=== PATIENT | female | born 1985 | race Caucasian/White ===

== ENCOUNTER 2020-09-02 05:06 | Inpatient (IN) | payer OTHER, SELFPAY ==
[2020-09-02] VITALS (57 sets, daily range): BP systolic 107–162; BP diastolic 57–91; PULSE 49–93; RESP 16; TEMP 36.4–37.1; O2SAT 96–100
[2020-09-02] MEDS: LACTATED RINGERS 1,000 ML 125 ML IV CONT ×2 (05:45→06:20)
[2020-09-02 05:56] LABS: Basophils Percent Auto 0.3 % (0.2-1.2); Eosinophils Absolute Auto 0.2 K/mm3 (0-0.3); Eosinophils Percent Auto 2.3 % (0-4.4); Hematocrit 37.1 % (37.0-47.0); Hemoglobin 12.5 g/dL (12.0-15.0); Immature Granulocyte Absolute 0.17 K/mm3 (0.00-0.031); Immature Granulocyte Percent A 1.7 % (0-0.5); Lymphocytes Absolute Auto 2.05 K/mm3 (0.9-3.2); Mean Corpuscular HGB Conc 33.7 g/dl (32-36); Mean Corpuscular Hemoglobin 30.7 pg (26-34); Mean Corpuscular Volume 91.2 fl (80-100); Mean Platelet Volume 11.8 fl (7.4-10.4); Monocytes Absolute Auto 0.6 K/mm3 (0.1-0.6); Monocytes Percent Auto 6.1 % (2.6-8.5); Neutrophils Absolute Auto 7.1 K/mm3 (1.3-6.7); Neutrophils Percent Auto 69.6 % (45.5-73.1); Platelet Count Result 150 k/mm3 (150-375); Red Blood Count 4.07 M/mm3 (4.2-5.4); Red Cell Distribution Width 12.6 % (11.5-14.5); White Blood Count 10.2 K/mm3 (4.5-10.0)
--- NOTE | 2020-09-02 05:57 | LDADM ---
This patient, Veronica Abreu, was admitted to Labor/Delivery/Recovery 104 on 09/02/20 at 05:06. Plans for labor, pain management and were discussed with patient. Patient/family oriented to hospital policies and general routines including ID bracelet, bed and alarms, visiting hours, pain management, procedures, bathroom and other care routines, personal items, smoking policy, room service/diet and guest tray routines, security routines, and visiting hours. Patient/Family are encouraged to report perceived risks to care and to ask questions if they do not understand what they are told or what they should do. See OBIX for further documentation.
--- NOTE | 2020-09-02 06:19 | WPDANESEPP ---
Anes - Eval Pre Procedure Procedure: Labor epidural Date/Time: 09/02/20 06:19 Surgeon: parrish ramires Preop Diagnosis: abd pain with contractions Pre Op Diagnosis: Leaking Patient Data Age: 34 Gender: F Height: 5 ft 10 in Weight: Last Vital Signs Pulse 56 L 09/02/20 06:17 BP 129/77 09/02/20 06:17 Pulse Ox 100 09/02/20 06:19 Allergies Allergy/AdvReac Type Severity Reaction Status Date / Time No Known Allergies Allergy Verified 10/30/19 15:57 Home Medications Medication Instructions Recorded Confirmed Type PNV cmb#95-ferrous fumarate-FA 1 tablet PO DAILY 08/16/20 08/16/20 History [] Laboratory Tests 09/02/20 09/02/20 05:45 05:45 WBC 10.2 K/mm3 H K/mm3 (4.5-10.0) RBC 4.07 M/mm3 L M/mm3 (4.2-5.4) Hgb 12.5 g/dL g/dL (12.0-15.0) Hct 37.1 % % (37.0-47.0) MCV 91.2 fl fl (80-100) MCH 30.7 pg pg (26-34) MCHC 33.7 g/dl g/dl (32-36) RDW 12.6 % % (11.5-14.5) Plt Count 150 k/mm3 k/mm3 (150-375) MPV 11.8 fl H fl (7.4-10.4) Immature Gran % (Auto) 1.7 % H % (0-0.5) Neut % (Auto) 69.6 % % (45.5-73.1) Lymph % (Auto) 20.0 % % (18.3-44.2) [place] % (Auto) 6.1 % % (2.6-8.5) Eos % (Auto) 2.3 % % (0-4.4) Baso % (Auto) 0.3 % % (0.2-1.2) Lymph # (Auto) 2.05 K/mm3 K/mm3 (0.9-3.2) [place] # (Auto) 0.6 K/mm3 K/mm3 (0.1-0.6) Eos # (Auto) 0.2 K/mm3 K/mm3 (0-0.3) Baso # (Auto) 0.0 K/mm3 K/mm3 (0.0-0.1) Abs Immat Gran (auto) 0.17 K/mm3 H K/mm3 (0.00-0.031) Absolute Neuts (auto) 7.1 K/mm3 H K/mm3 (1.3-6.7) Absolute Nucleated RBC 0.0 K/mm3 K/mm3 (0.0-0.012) Nucleated RBC % 0.0 % % (0.0-0.2) RPR Pending Patient hx anesthesia problems: none Family hx anesthesia problems: none PMFSH Family History Family History Mother Other No pertinent family history Social History Social History Smoking status: Never smoker Substance use: never Gender identity (if verbalized by the patient): Female Spiritual care concerns: No Exam Day of Procedure 09/02/20 06:19 Patient weight: overweight Airway: Mallampati scale class II Neurological: alert and oriented
--- NOTE | 2020-09-02 06:57 | PM.IMHP ---
H&P: HPI History of Present Illness Date/Time: 09/02/20 06:57 34-year-old whose last menstrual period was 12/06/2019, EDC is 09/11/2020, confirmed by 10 week ultrasound presents at 38 and half weeks gestation with spontaneous rupture membranes prior to admission. has apparently been uncomplicated and she is negative for group B strep. Chief Complaint: srom Review of Systems Review of Systems: All systems reviewed & are unremarkable except as noted in HPI and below PMFSH Family History Family History Mother Other No pertinent family history Social History Social History Smoking status: Never smoker Substance use: never Gender identity (if verbalized by the patient): Female Spiritual care concerns: No Meds Home Medications and Allergies Home Medications Medication Instructions Recorded Confirmed Type PNV cmb#95-ferrous fumarate-FA 1 tablet PO DAILY 08/16/20 08/16/20 History [] Allergies Allergy/AdvReac Type Severity Reaction Status Date / Time No Known Allergies Allergy Verified 10/30/19 15:57 Vital Signs Vital Signs - 24 hr 09/02/20 06:00 09/02/20 06:04 09/02/20 06:05 Temperature 98.2 F Pulse Rate 57 L Blood Pressure 127/84 Pulse Oximetry 97 09/02/20 06:08 09/02/20 06:09 09/02/20 06:10 Temperature Pulse Rate 55 L 62 Blood Pressure 125/63 128/69 Pulse Oximetry 99 09/02/20 06:14 09/02/20 06:15 09/02/20 06:17 Temperature Pulse Rate 62 55 L 56 L Blood Pressure 131/77 122/74 129/77 Pulse Oximetry 99 09/02/20 06:19 09/02/20 06:20 09/02/20 06:22 Temperature Pulse Rate 67 60 Blood Pressure 133/82 128/82 Pulse Oximetry 100 09/02/20 06:24 09/02/20 06:25 09/02/20 06:28 Temperature Pulse Rate 55 L 65 Blood Pressure 119/78 136/73 Pulse Oximetry 100 09/02/20 06:29 09/02/20 06:30 09/02/20 06:32 Temperature Pulse Rate 61 67 Blood Pressure 129/80 130/91 H Pulse Oximetry 100 09/02/20 06:34 09/02/20 06:35 09/02/20 06:37 Temperature Pulse Rate 93 57 L Blood Pressure 118/72 122/75 Pulse Oximetry 100 09/02/20 06:39 09/02/20 06:40 09/02/20 06:44 Temperature Pulse Rate 49 L Blood Pressure 129/69 Pulse Oximetry 100 100 09/02/20 06:45 09/02/20 06:49 09/02/20 06:54 Temperature Pulse Rate 62 Blood Pressure 107/57 L Pulse Oximetry 100 100 Exam Const: General: no acute distress Eyes: General: appearance normal, both eyes and all related structures Neck: Neck: supple and no JVD Thyroid: thyroid normal Resp: Effort & Inspection: normal respiratory effort Auscultation: clear to auscultation bilaterally Cardio: Rate: regular rate Rhythm: regular rhythm GI: Inspection: non-distended GI Palp: Yes Soft to palpation, No Tenderness to palpation present (GI) and No Guarding due to palpation present (GI) Auscultation: normal bowel sounds : External Female Exam: normal external appearance Speculum Exam - Cervix: Cervical os closed ( Cervix 4cm by RN exam. Clear fluid seen. FHTs were reassuring) Skin: General skin exam: no rashes or lesions noted Extrem: General: normal to inspection and no edema Psych: Mental Status: mental status grossly normal Affect: normal affect H&P: Results Labs Labs: Short CBC 09/02/20 Range/Units 05:45 WBC 10.2 H (4.5-10.0) K/mm3 Hgb 12.5 (12.0-15.0) g/dL Hct 37.1 (37.0-47.0) % Plt Count 150 (150-375) k/mm3 Assessment and Plan Additional Plan impression: Term with spontaneous rupture membranes Plan: Spontaneous vaginal was expected. She has an epidural candidate
[2020-09-02 07:18] LABS: Rapid Plasma Reagin Non-Reactive (NonReactive)
[2020-09-02] MEDS: OXYTOCIN 30 UNITS/NS 500 ML 30 UNITS/500 ML BAG 999 UNITS IV CONT (08:01)
--- NOTE | 2020-09-02 08:05 | PM.OBPRVD ---
OB - Delivery Note Procedure Delivery date: 09/02/20 Intrapartal events: None Induction method: none Delivery monitor: external FHT Route of delivery: Episiotomy description: None Laceration Description: None Specimen: No Quantitative Blood Loss (ml): 58 Anesthesia type: Epidural Disposition: floor Baby Date of : 09/02/20 Time of : 07:58 Weeks of gestation at delivery: 38 gender: Male presentation: vertex position: Right Occiput Anterior Placenta delivery description: Spontaneous cord vessel description: 3 Vessels score one minute: 9 score five minutes: 9
[2020-09-02] MEDS: OXYTOCIN 30 UNITS/NS 500 ML 30 UNITS/500 ML BAG 125 UNITS IV CONT (08:37)
[2020-09-02] MEDS: BENZOCAINE 20% AER SPR (*SP) 56 GM CAN 1 SPRAY TOPICAL (10:09)
[2020-09-02] MEDS: WITCH HAZEL 40 PADS 1 PAD TOPICAL (10:09)
[2020-09-02] MEDS: DIBUCAINE 1% OINTMENT 30 GM TUBE 1 APPLIC TOPICAL (10:09)
[2020-09-02] MEDS: IBUPROFEN 600 MG TABLET PO ×3 (10:37→23:55)
--- NOTE | 2020-09-02 11:30 | PC.NURSE ---
Mother called out for assist with feeding. Consulted with patient, mother reports fed eagerly for first feeding. Mother has nipple discomfort with latch during first part of the feeding that quickly resolves. Observed mother putting infant to breast in cradle with shallow latch. Reviewed infant feeding cues, frequencies, duration of feedings, feeding elimination flow sheet, and signs of adequate intake. Demonstrated stimulation techniques to wake infant for feeding. Assisted with to breast. Reviewed positioning/alignment in cross cradle, holding breast in U hold and guided asymmetrical latch on. Reviewed need assist to latch and to maintain latch. was able to latch within a few attempts. nursed eagerly, with steady draws and frequent swallowing noted. Reviewed signs of a correct latch, effective nursing and suck swallow ratio. Infant was able to maintain latch. Mother reported tenderness at times, infant had slipped to shallow latch. Demonstrated how to adjust latch more deeply while feeding. Mother quickly reports she can feel is latched more deeply and has minimal tenderness. Suggested to stimulate infant while feeding to keep awake and nursing effectively for increased stimulation and increased intake. Instructed mother to call out for RN assistance if she is unable to latch infant for feeding or she has discomfort with nursing.
[2020-09-03 05:00] VITALS: BP 113/74; PULSE 63; RESP 16; TEMP 36.5; O2SAT 100
[2020-09-03] MEDS: ACETAMINOPHEN 325 MG TABLET 650 MG PO (05:07)
[2020-09-03 05:50] LABS: Hematocrit 34.2 % (37.0-47.0); Hemoglobin 11.3 g/dL (12.0-15.0)
--- NOTE | 2020-09-03 07:22 | WPDANLDPN2 ---
Anes-Prog Note L&D Date/Time: 09/03/20 07:22 Comfortable throughout: labor and delivery Neuraxial method: epidural Epidural/Spinal procedure site: clean & non-tender Neuro status: Neuro function grossly intact. Cardiovascular status: normal Respiratory status: normal Airway patency: baseline Mental status: baseline Post-Op hydration status: normal Vital Signs: Last Vital Signs Temp 36.5 C 09/03/20 05:00 Pulse 63 09/03/20 05:00 Resp 16 09/03/20 05:00 BP 113/74 09/03/20 05:00 Pulse Ox 100 09/03/20 05:00 Pain score (VAS): 06/09 Post-procedural complaints: none Patient feedback: Patient satisfied with anesthetic care.
[2020-09-03] MEDS: WITCH HAZEL 40 PADS 1 PAD TOPICAL (07:33)
[2020-09-03] MEDS: BENZOCAINE 20% AER SPR (*SP) 56 GM CAN 1 SPRAY TOPICAL (07:33)
[2020-09-03] MEDS: DOCUSATE SODIUM 100 MG CAPSULE PO (07:34)
[2020-09-03] MEDS: IBUPROFEN 600 MG TABLET PO ×2 (07:34→13:25)
[2020-09-03] MEDS: MULTIVIT/MIN/PREN/FOL AC/IRON TABLET 1 TAB PO (07:34)
[2020-09-03 07:57] VITALS: BP 116/78; PULSE 76; RESP 18; TEMP 36.4
--- NOTE | 2020-09-03 10:00 | PC.NURSE ---
Patient was given the opportunity to view the discharge video Mother & Baby Care, The First Two Weeks and to ask questions. Patient declined viewing the video and has been given the mother/baby guide for home reference.
--- NOTE | 2020-09-03 10:10 | PC.NURSE ---
Mother called out for assist with feeding. Mother reports nipple discomfort with latch that lessens during the feeding. Reviewed nipple care of lanolin, warm compresses several times per day and gel pads as needed. Reviewed infant feeding cues, frequencies, duration of feedings, feeding elimination flow sheet, and signs of adequate intake. Demonstrated stimulation techniques to wake for feeding. Assisted with infant to breast. Reviewed positioning/alignment in cross cradle, holding breast in U hold and guided asymmetrical latch on. Mother quickly switches to cradle, advised to continue to hold breast during entire feeding to assist infant with maintaining deep latch. was able to latch within a few attempts. Infant nursed eagerly, with steady draws and frequent swallowing noted. Reviewed signs of a correct latch, effective nursing and suck swallow ratio. Infant was able to maintain latch. Mother reported tenderness at times, had slipped to shallow latch. Demonstrated how to adjust latch more deeply while feeding. Mother quickly reports she can feel is latched more deeply and has minimal tenderness. Suggested to stimulate while feeding to keep awake and nursing effectively for increased stimulation and increased intake. Instructed mother to call out for RN assistance if she is unable to latch for feeding or she has discomfort with nursing. Mother plans on discharge today. Mother able to independently latch with appropriate positioning/alignment. She reports slight nipple discomfort ( working with deeper latch), is feeding as required and waking to feed if needed. effective feeding as required since , and is currently meeting outcomes for weight, output, jaundice and feeding frequencies. Mother states she feels confident to continue effective at home. Reviewed transition to breast milk, signs of adequate intake, and engorgement/relief. Instructed to call ICP if intake/output less than required. Reviewed regular medications mother is taking. Information provided per Michelle. Reviewed community resources on the [employer] website and in the Mom/Baby guide. Information on outpatient services provided. Mother has no further questions at this time.
--- NOTE | 2020-09-03 12:38 | PM.OBPNVD ---
OB - PN: Subj Subjective Date/time seen: 09/03/20 12:38 Narrative: Pain OK. Would like circumcision for son. Also would like to go home today. OB - PN: Obj Data Labs CBC & Chem 7: 09/03/20 04:58 Labs: Laboratory Results - last 24 hr 09/03/20 04:58 Hgb 11.3 L Hct 34.2 L OB - PN A/P Plan Comments: A: PPD#1, doing well. P: Routine care. Reviewed circ. Plan to send home today to f/u 6 weeks. Exam Psych: Other: AVSS ABD soft, nontender, fundus firm EXT nontender
--- NOTE | 2020-09-03 12:40 | PM.OBDSVD ---
DS: Admitting Diagnosis Admitting Diagnosis Admitting Diagnosis: SROM IUP at 38 5/7 weeks DS: Discharge Diagnosis Discharge Diagnosis (1) (normal spontaneous vaginal delivery): Code(s): O80 - Encounter for full-term uncomplicated delivery Status: Acute OB - DS: Summary OB Procedures : None OB Procedures Intrapartum: Spontaneous Vag Delivery OB Procedures: : None Time Spent with Patient Time attestation: Total time spent providing and/or coordinating discharge services: DS: Data Data Completed and Pending Labs on day of discharge: Labs from last 24 hours 09/03/20 04:58 Hgb 11.3 L Hct 34.2 L Discharge Plan Discharge Attending physician on discharge: Saleem Murrell Discharging Clinician: Jeferson Schneider Patient Disposition: Home, Self-Care Activity: pelvic rest Diet: regular Discharge Instructions: Call or return if temperature above 100.4? F, increased abdominal pain, increased vaginal bleeding or any new problems. Stand Alone Forms: General Discharge Information Follow-up/Referrals: Jeferson Schneider MD [Physician] - 6 Weeks Discharge Medications: New ibuprofen 600 mg tablet 600 mg PO Q6H PRN (Reason: cramps) Qty: 30 RF: 0 No Action PNV cmb#95-ferrous fumarate-FA [] 28 mg iron- 800 mcg Tablet 1 tablet PO DAILY RF: 0 Date of admission: 09/02/20 05:06 Primary Care Provider: Thaddeus Sotomayor Admitting Provider: Jeferson Schneider Attending physician on admission: Jeferson Schneider Condition: Stable
[2020-09-03] MEDS: TETANUS,DIPHTHERIA,AC PERTUSSIS ADULT (0.5 ML) BOOSTRIX IM (13:26)
--- NOTE | 2020-09-03 14:00 | PC.NURSE ---
Self care and infant care discharge instructions given including follow up visit date and time. Pt. verbalized understanding. No questions or concerns voiced. Very pleasant and cooperative.
[2020-09-04 10:50] VITALS: BP 113/76; PULSE 61; RESP 20; TEMP 36.6; O2SAT 99
== END 2020-09-03 15:00 | disposition home or self-care (01) | DRG 807 ==
LOC: ANHLDR 05:45 → ANHOB2 10:21
PROVIDERS: Obstetrics & Gynecology; Admitting Provider Obstetrics & Gynecology; PCP Family Medicine; Visit Provider Obstetrics & Gynecology
DX: O80 Encounter for full-term uncomplicated delivery (principal); Z37.0 Single live birth; Z3A.38 38 weeks gestation of pregnancy
CPT/HCPCS: 36415; 84112; 85014; 85018; 85025; 86592; 86850; 86900; 86901; 90715; A9270; J2590; J2795; J7120

== ENCOUNTER 2024-03-15 06:34 | Inpatient (IN) | payer BC, SELFPAY ==
[2024-03-15] VITALS (95 sets, daily range): BP systolic 75–219; BP diastolic 30–184; PULSE 45–171; RESP 18; TEMP 36.1–37.1; O2SAT 76–100
--- NOTE | 2024-03-15 06:34 | LDADM ---
This patient, Veronica Abreu, was admitted to Labor/Delivery/Recovery 107 on 03/15/24 at 06:34. Plans for labor, pain management and were discussed with patient. Patient/family oriented to hospital policies and general routines including ID bracelet, bed and alarms, visiting hours, pain management, procedures, bathroom and other care routines, personal items, smoking policy, room service/diet and guest tray routines, security routines, and visiting hours. Patient/Family are encouraged to report perceived risks to care and to ask questions if they do not understand what they are told or what they should do. See OBIX for further documentation.
[2024-03-15] MEDS: LACTATED RINGERS 1,000 ML 125 ML IV CONT ×2 (07:14→09:28)
[2024-03-15 07:15] LABS: Basophils Percent Auto 0.4 % (0.2-1.2); Eosinophils Absolute Auto 0.1 K/mm3 (0-0.3); Eosinophils Percent Auto 1.4 % (0-4.4); Hematocrit 38.9 % (37.0-47.0); Hemoglobin 13.6 g/dL (12.0-15.0); Lymphocytes Percent Auto 16.9 % (18.3-44.2); Mean Corpuscular Hemoglobin 32.2 pg (26-34); Mean Corpuscular Volume 92.2 fl (80-100); Mean Platelet Volume 11.2 fl (7.4-10.4); Monocytes Absolute Auto 0.6 K/mm3 (0.1-0.6); Monocytes Percent Auto 5.9 % (2.6-8.5); Neutrophils Absolute Auto 7.4 K/mm3 (1.3-6.7); Neutrophils Percent Auto 73.4 % (45.5-73.1); Platelet Count Result 164 k/mm3 (150-375); Red Blood Count 4.22 M/mm3 (4.2-5.4); Red Cell Distribution Width 12.7 % (11.5-14.5); White Blood Count 10.1 K/mm3 (4.5-10.0)
[2024-03-15] MEDS: OXYTOCIN 30 UNITS/NS 500 ML 30 UNITS/500 ML BAG IV CONT (07:15)
[2024-03-15 08:06] LABS: HIV 1/2 Ab P24 Ag Result Negative (Negative)
[2024-03-15 08:30] LABS: Rapid Plasma Reagin Non-Reactive (NonReactive)
[2024-03-15 08:45] LABS: Hepatitis B Surface Antigen Negative (Negative)
--- NOTE | 2024-03-15 08:49 | WPDOBADMIT ---
Obstetrics - Admit Note Admission Note: record reviewed. Additions to the history and/or subsequent changes in the physical findings follow. 38 y/o at 39 weeks here for induction of labor. GBS neg. AVSS NST reactive TOCO: contractions irregularly ABD soft, nontender, gravid EXT nontender Cervix /-2. Vertex. AROM with clear fluid. A: IUP at term with favorable cervix. P: Oxytocin. Anticipate .
[2024-03-15 09:02] LABS: Rubella IgG Antibody 47.2 IU/ML
--- NOTE | 2024-03-15 12:03 | PM.OBPNLAB ---
Pain Control Date/time seen: 03/15/24 12:03 Comments: Comfortable with epidural. Pelvic Exam Dilation (cm): 5 Effacement (%): 80 station: -2 Contractions Contraction frequency: 4 Status status: Category l Assessment and Plan Plan: continuous present management
--- NOTE | 2024-03-15 15:40 | PM.OBPRVD ---
OB - Vaginal Delivery Note Procedure Delivery date: 03/15/24 Events: Elective Induction of Labor Induction method: Per Pitocin Protocol Delivery augmentation: Rupture of Membranes Delivery monitor: External FHT and External Uterine Route of delivery: Episiotomy description: None Laceration Description: Perineal - 1st Degree Delivery repair: vicryl (3-0) Specimen: Yes (cord blood) Quantitative Blood Loss (ml): 200 Anesthesia type: Epidural Disposition: PACU Complications: None Narrative: 38 y/o at 39 weeks gestation who presented to the hospital for induction of labor. Oxytocin was administered intravenously. Amniotomy was performed with return of clear fluid. She received an epidural for pain control. Her labor progressed and her cervix dilated completely. She pushed with good effort and delivered the infant's head to the perineum, followed by the body. The nose and mouth were bulb suctioned. After a delay, the cord was clamped and cut. The infant was handed off the field. Cord blood was collected. The placenta delivered spontaneously and was grossly normal in appearance. The usual 3 vessel cord was noted. A first degree midline perineal laceration was sustained. This was reapproximated using 3 0 Vicryl in a single, figure of eight suture. Excellent hemostasis resulted as did excellent reapproximation of the normal anatomy. Needle and instrument counts were correct. The patient was taken to recovery room in stable condition. The infant went to the nursery in stable condition. I was present and scrubbed for the entire delivery. Baby Date of : 03/15/24 Time of : 15:23 Gestational Age by Date: 39 gender: Female Weight (pounds): 9 Weight (ounces): 6 presentation: vertex position: Left Occiput Anterior Placenta delivery description: Spontaneous and Normal Configuration Cord Vessel Description: 3 Vessels and Delayed Cord Clamping score one minute: 9 score five minutes: 9
--- NOTE | 2024-03-15 15:44 | P.DS_ITS ---
DS: Admitting Diagnosis Discharge Date 03/16/24 Admitting Diagnosis IUP at 39 weeks DS: Discharge Diagnosis Discharge Diagnosis (1) (normal spontaneous vaginal delivery): Code(s): O80 - Encounter for full-term uncomplicated delivery Status: Acute OB - DS: Summary OB Procedures : None OB Procedures Intrapartum: Spontaneous Vag Delivery OB Procedures: : None Peripartum Data Laceration Description: Perineal - 1st Degree Episiotomy description: None Time Spent with Patient Time attestation: Total time spent providing and/or coordinating discharge services: DS: Data Data Completed and Pending Labs on day of discharge: Labs from last 24 hours 03/15/24 06:48 WBC 10.1 H RBC 4.22 Hgb 13.6 Hct 38.9 MCV 92.2 MCH 32.2 MCHC 35.0 RDW 12.7 Plt Count 164 MPV 11.2 H Immature Gran % (Auto) 2.0 H Neut % (Auto) 73.4 H Lymph % (Auto) 16.9 L [place] % (Auto) 5.9 Eos % (Auto) 1.4 Baso % (Auto) 0.4 Lymph # (Auto) 1.70 [place] # (Auto) 0.6 Eos # (Auto) 0.1 Baso # (Auto) 0.0 Abs Immat Gran (auto) 0.20 H Absolute Neuts (auto) 7.4 H Absolute Nucleated RBC 0.000 Nucleated RBC % 0.0 RPR Non-reactive Hep Bs Antigen Negative HIV 1&2 Ab/P24 Ag 4thGn Negative Rubella IgG Antibody 47.2 Blood Type AB Positive Antibody Screen Negative Discharge Plan Discharge Attending physician on discharge: Jeferson Schneider Discharging Clinician: Jeferson Schneider Patient Disposition: Home, Self-Care Activity: pelvic rest Diet: regular Discharge Instructions: Call or return if temperature above 100.4? F, increased abdominal pain, increased vaginal bleeding or any new problems. Stand Alone Forms: General Discharge Information Follow-up/Referrals: Jeferson Schneider MD [Physician] - 6 Weeks Discharge Medications: New ibuprofen 600 mg tablet 600 mg PO Q6H PRN (Reason: cramps) Qty: 30 0RF Continued #2 Tablet 1 tablet Date of admission: 03/15/24 06:34 Primary Care Provider: Thaddeus Sotomayor Admitting Provider: Jeferson Schneider Attending physician on admission: Jeferson Schneider Condition: Stable
[2024-03-15] MEDS: OXYTOCIN 30 UNITS/NS 500 ML 30 UNITS/500 ML BAG 125 UNITS IV CONT (15:58)
[2024-03-15] MEDS: BENZOCAINE 20% AER SPR (*SP) 56 GM CAN 1 SPRAY TOPICAL (19:35)
[2024-03-15] MEDS: WITCH HAZEL 40 PADS 1 PAD TOPICAL (19:35)
--- NOTE | 2024-03-15 19:51 | PC.NURSE ---
Addendum entered by Malinda Taveras RN 03/15/24 22:10: Room #290 Original Note: Patient transferred to post room # via (W/C ). Support person present. Oriented to unit, room, information board, rooming in, admission packet and security measures. Patient verbalizes understanding.
[2024-03-15] MEDS: IBUPROFEN 600 MG TABLET PO (23:30)
[2024-03-16] MEDS: IBUPROFEN 600 MG TABLET PO (06:52)
[2024-03-16] MEDS: MULTIVIT/MIN/PREN/FOL AC/IRON TABLET 1 TAB PO (06:52)
[2024-03-16 07:14] LABS: Hematocrit 38.9 % (37.0-47.0); Hemoglobin 13.3 g/dL (12.0-15.0)
[2024-03-16 07:45] VITALS: BP 119/67; PULSE 73; RESP 16; TEMP 36.9; O2SAT 100
[2024-03-16 12:14] VITALS: BP 109/66; PULSE 73; RESP 16; TEMP 36.6; O2SAT 98
--- NOTE | 2024-03-16 13:22 | PM.OBPNVD ---
OB - PN: Subj Subjective Date/time seen: 03/16/24 13:22 Narrative: Pain OK. Would like to go home. OB - PN: Obj Data Labs 03/16/24 07:10 Labs: Laboratory Results - last 24 hr 03/16/24 07:10 Hgb 13.3 Hct 38.9 OB - PN A/P Plan day: 1 Comments: A: PPD#1, doing well. P: Home to f/u 6 weeks. Exam Psych: Other: AVSS ABD soft, nontender, fundus firm EXT nontender
[2024-03-17 08:04] VITALS: BP 118/75; PULSE 66; RESP 16; TEMP 36.4; O2SAT 96
== END 2024-03-16 16:55 | disposition home or self-care (01) | DRG 807 ==
LOC: ANHLDR 15:45 → ANHOB2 19:57
PROVIDERS: Admitting Provider Obstetrics & Gynecology; PCP Family Medicine; Visit Provider Obstetrics & Gynecology
DX: O70.0 First degree perineal laceration during delivery (principal); Z37.0 Single live birth; Z3A.39 39 weeks gestation of pregnancy
CPT/HCPCS: 36415; 85014; 85018; 85025; 86592; 86703; 86762; 86850; 86900; 86901; 87340; A9270; G0432; J2590; J2795; J7120

== ENCOUNTER 2024-09-06 14:17 | Outpatient (CLI) | payer BC, SELFPAY ==
--- NOTE | ~2024-09-06 | XR_ITS ---
EXAM/ PROCEDURE: XR wrist LT min 3V - 09/06/2024 14:19 CDT HISTORY: 38 years old Female with M25.532 - Pain in left wrist COMPARISON: None available TECHNIQUE: 5 view(s) FINDINGS/ IMPRESSION: There are no fractures or dislocations.Joint spaces are within normal limits Reviewed, dictated and finalized at location A.
== END 2024-09-06 14:18 | disposition home or self-care (01) ==
LOC: GOSHIMG 14:18
DX: M25.532 Pain in left wrist (principal)
CPT/HCPCS: 73110